=== PATIENT | male | born 1950 | race Caucasian/White ===

== ENCOUNTER 2016-12-28 04:57 | Inpatient (IN) | payer OTHER ==
--- NOTE | 2016-12-17 09:37 | HISTORY & PHYSICAL EXAMINATION ---
DATE OF ADMISSION: 12/28/2016 PROCEDURE: Left knee replacement. HISTORY OF PRESENT ILLNESS: Mr. Alaniz is a pleasant 66-year-old male who presents for preoperative evaluation prior to left knee replacement. He states he has been having pain in this knee for several years now which has gradually worsened, now gotten to the point it is affecting his daily activities including walking, standing, going up and down steps. He has tried oral anti-inflammatories including Aleve and ibuprofen without relief, he has had previous cortisone injection as well as viscosupplementation with minimal relief. He had previous knee arthroscopy in 2006. At this point in time, has failed conservative measures and would like to proceed with left knee replacement. PAST MEDICAL HISTORY: He denies a history of hypertension, high cholesterol, diabetes. He does take medications for BPH as well as levofloxacin for his thyroid. ALLERGIES: No known drug allergies. MEDICATIONS: 1. Aspirin 81 mg daily. 2. Levothyroxine 175 mcg daily. 3. Aleve. 4. Tamsulosin 0.4 mg daily. 5. Centrum. PAST SURGICAL HISTORY: Appendectomy. FAMILY HISTORY: Noncontributory. SOCIAL HISTORY: He denies a history of smoking or tobacco use. No alcohol consumption. REVIEW OF SYSTEMS: Otherwise negative. Please see HPI for pertinent positives. EXAMINATION: GENERAL: Blair 66-year-old male in no acute distress, alert and oriented x3. He is 5 feet 10, weighs 160 pounds. VITAL SIGNS: Blood pressure is 134/82, pulse 62, O2 sats 94%. HEENT: Normocephalic, atraumatic. CARDIAC: Regular rate and rhythm. No murmurs or gallops appreciated. Resting pulse 62 beats per minute. LUNGS: Clear to auscultation without rales or wheeze bilaterally. ABDOMEN: Soft, nontender. Bowel sounds present. EXTREMITIES: Left lower extremity is neurovascularly intact. Calves are soft and nontender. DP pulse +2. Demonstrates good quad tone. Straight leg raise without lag. No erythema or warmth. Has mild effusion. Positive crepitation with motion, range of motion is 0/3/120. IMAGING: Reviewed of left knee show findings consistent with degenerative joint disease including joint space narrowing, subchondral sclerosis, osteophyte formation noted. Overall has varus alignment. IMPRESSION: 1. Left knee degenerative joint disease. 2. Past medical history as outlined above. PLAN: Further care discussed with the patient. At this point in time, has failed conservative measures and would like to proceed with left knee replacement on 12/28/2016. We will plan on discharge home with outpatient physical therapy. We will place on aspirin 81 mg p.o. b.i.d. for a month postop.
[2016-12-17 09:48] VITALS: Ht 177.8 cm; Wt 72.6 kg
--- NOTE | 2016-12-17 10:18 | PAT Medication Instructions ---
Service Date December 17, 2016. Current Home Medication List Aspirin (Aspirin Ec), 81 MG PO QAM Cholecalciferol (Vitamin D3), 1 TAB PO QPM Levothyroxine Sodium (Levothyroxine Sodium), 1 TAB PO QAM Multivitamin (Multivitamin), 1 TAB PO QAM Naproxen (Aleve), 220 MG PO BID Tamsulosin HCl (Tamsulosin HCl), 0.4 MG PO HS Medication Instructions For Your Scheduled Surgery - Check with surgeon for instructions: Naproxen (Aleve), 220 MG PO BID - Hold the following medications the morning of surgery: Multivitamin (Multivitamin), 1 TAB PO QAM - Take the following medications the morning of surgery with a sip of water: Levothyroxine Sodium (Levothyroxine Sodium), 1 TAB PO QAM Aspirin (Aspirin Ec), 81 MG PO QAM - Take the following medications as scheduled the night before surgery: Tamsulosin HCl (Tamsulosin HCl), 0.4 MG PO HS Cholecalciferol (Vitamin D3), 1 TAB PO QPM If you have any questions please call us at [phone] (Brianda Oneal PA-C) or [phone] or [phone]
[2016-12-17 10:46] LABS: BASO % 0.3 %; BASO ABS # 0.02 K/uL (0-0.2); COMPLETE YES; EOS % 1.1 %; HEMATOCRIT 46.9 % (42-52); IG% 0.4 %; LYMPH % 16.2 %; LYMPH ABS # 1.16 K/uL (1.2-3.4); MEAN CELL VOLUME 91.6 fL (80-100); MEAN CORPUSCULAR HEMOGLOBIN 29.5 pg (25-34); MEAN CORPUSCULAR HGB CONC 32.2 g/dl (32-36); MEAN PLATELET VOLUME 9.5 fL (7.4-10.4); MONO % 8.2 %; NEUT % 73.8 %; PLATELET COUNT 241 K/uL (130-400); RED BLOOD COUNT 5.12 M/uL (4.7-6.1); WHITE BLOOD COUNT 7.16 K/uL (4.8-10.8)
[2016-12-17 11:11] LABS: PARTIAL THROMBOPLASTIN RATIO 1.1; PROTHROMBIN TIME (PATIENT) 10.6 SECONDS (9.0-12.0)
[2016-12-17 11:37] LABS: CALCIUM 8.7 mg/dl (8.5-10.1); CREATININE 0.9 mg/dl (0.60-1.40); POTASSIUM 4.6 mmol/L (3.5-5.1)
[~2016-12-28] VITALS: Ht 177.8 cm; Wt 72.6 kg
[2016-12-28] VITALS (8 sets, daily range): BP systolic 117–154; BP diastolic 67–95; PULSE 58–84; TEMP 36.5–37.1; O2SAT 96–100
[~2016-12-28 04:57] MED LIST: ASPI81TA28 PO; CHOL1000 PO; FLM4 PO; LEVO175T3 PO; MULT-506 PO; NAPR1TAB9 PO
[2016-12-28] MEDS ORDERED: LACTATED RINGER'S 1000ML IV SCH (06:00)
[2016-12-28] MEDS ORDERED: ACETAMINOPHEN 500 MG TAB PO SCH (06:00)
[2016-12-28] MEDS ORDERED: METOCLOPRAMIDE HCL 10 MG TAB PO SCH (06:00)
[2016-12-28] MEDS ORDERED: GABAPENTIN 300 MG CAP PO SCH (06:00)
[2016-12-28] MEDS ORDERED: LACTATED RINGER'S 1000ML 1,000 ML IV SCH (06:00)
[2016-12-28] MEDS ORDERED: CeleBREX 200 MG CAP PO SCH (06:00)
[2016-12-28] MEDS ORDERED: FAMOTIDINE 20 MG TAB PO SCH (06:00)
[2016-12-28] MEDS ORDERED: DEXAMETHASONE 4 MG TAB PO SCH (06:00)
[2016-12-28] MEDS ORDERED: CEFAZOLIN 1000MG/55 ML D5W 55 ML IV SCH (06:00)
[2016-12-28] MEDS ORDERED: LACTATED RINGER'S 1000ML 500 ML IV ONE (06:00)
[2016-12-28] MEDS ORDERED: ROPIVACAINE 5MG/ML 30 ML 150 MG, BUPIVACAINE/EPINEPHR 0.5% MPF 30 ML, KETOROLAC TROMETH... INFIL SCH ×7 (06:00)
[2016-12-28] MEDS ORDERED: ORTHO JOINT ANESTHETIC ONE (06:30)
[2016-12-28] MEDS ORDERED: BACITRACIN 50000 UNIT VIAL ONE (06:31)
[2016-12-28] MEDS ORDERED: POVIDONE-IODINE OP SOLN 30 ML BTL ONE (06:31)
[2016-12-28] MEDS ORDERED: MIDAZOLAM HCL 1 MG/ML 2ML VIAL ONE (06:40)
[2016-12-28] MEDS ORDERED: FENTANYL CITRATE INJ 50 MCG/1 ML 2 ML VIAL ONE (06:40)
[2016-12-28] MEDS ORDERED: BUPIVACAINE 0.5 % 5 MG/1 ML PF 10ML VIAL ONE (06:43)
[2016-12-28] MEDS ORDERED: BUPIVACAINE 0.25% 30 ML VIAL ONE (06:43)
[2016-12-28] MEDS ORDERED: NURSING VERBAL MED ORDER ONE (06:45)
--- NOTE | 2016-12-28 06:50 | History & Physical Bridge Note ---
H&P Re-Evaluation Bridge Note: I have examined the patient, reviewed the History & Physical and in the interval since the performance of the History & Physical I have noted the following changes of clinical significance: No changes noted
[2016-12-28] MEDS: TRANEXAMIC ACID INJ 1,000 MG in SODIUM CHLORIDE 0.9% 100ML 100 ML IV SCH ×2 (07:03→07:30)
[2016-12-28] MEDS ORDERED: PROPOFOL IV EMULSION 10 MG/ML 20 ML VIAL IV ONE ×3 (07:03→07:07)
[2016-12-28] MEDS ORDERED: LACTATED RINGER'S 1000ML 1,000 ML IV PRN (07:24)
[2016-12-28] MEDS ORDERED: ONDANSETRON INJ 2 MG/ML 2 ML VIAL IV PRN ×2 (07:30→08:15)
[2016-12-28] MEDS ORDERED: FENTANYL CITRATE INJ 50 MCG/1 ML 2 ML VIAL IV PRN (07:30)
--- NOTE | 2016-12-28 08:11 | [facility] Post Operative Brief Note ---
Immediate Operative Summary Operative Date December 28, 2016. Pre-Operative Diagnosis Left knee degenerative joint disease Post-Operative Diagnosis Left knee degenerative joint disease Procedure(s) Performed Left Total Knee Arthroplasty, Cemented Surgeon Dr. Guanako Franco Leaflet Or Newspaper Deliverer Surgeon(s) Vivek Mcwilliams PA-C Estimated Blood Loss 5ml Findings severe djd lt knee Specimens A: Left knee bone and tissue Complication(s) None Disposition Recovery Room / PACU
[2016-12-28] MEDS ORDERED: LIDOCAINE HCL 2% 2 ML VIAL (20MG/ML) ONE (08:15)
[2016-12-28] MEDS ORDERED: SOD PHOSPHATE/SOD BIPHOSPHATE ENEMA 132 ML BTL PR PRN (08:15)
[2016-12-28] MEDS ORDERED: ZOLPIDEM TARTRATE 5 MG TAB PO PRN (08:15)
[2016-12-28] MEDS ORDERED: METOCLOPRAMIDE HCL INJ 5 MG/ML 2 ML VIAL IV PRN (08:15)
[2016-12-28] MEDS ORDERED: CEFAZOLIN SOD 1 GM VIAL ONE (08:15)
[2016-12-28] MEDS ORDERED: ALUMINUM/MAGNESIUM/SIMETH (MAALOX MAX) 30 ML UDC PO PRN (08:15)
[2016-12-28] MEDS ORDERED: OXYCODONE HCL IR 5 MG TAB (IMMEDIATE RELEASE) PO PRN (08:15)
[2016-12-28] MEDS ORDERED: MAGNESIUM HYDROXIDE SUSP 30 ML UDC PO PRN (08:15)
[2016-12-28] MEDS ORDERED: DiphenhydrAMINE HCL 50 MG/ML VIAL IV PRN (08:15)
[2016-12-28] MEDS ORDERED: BISACODYL 10 MG SUPP PR PRN (08:15)
--- NOTE | 2016-12-28 08:30 | OPERATIVE REPORT ---
DATE OF OPERATION: 12/28/2016 PREOPERATIVE DIAGNOSIS: Severe end-stage degenerative joint disease, left knee. POSTOPERATIVE DIAGNOSIS: Severe end-stage degenerative joint disease, left knee. PROCEDURE: Left total knee arthroplasty utilizing Rivera \T\ Nephew Journey II nonblock total knee arthroplasty size 6 femur, 6 tibia, 10 poly, 35 oval patella. SURGEON: Dr. Franco. 911 EMERGENCY DISPATCHER: Vivek Mcwilliams, who was necessary for prepping, draping, retraction, wound closure of deep fascia, subcutaneous, skin and was necessary for the case. ESTIMATED BLOOD LOSS: 5 mL. COMPLICATIONS: None. TOURNIQUET TIME: 40 minutes. HISTORY OF PRESENT ILLNESS: The patient presents as a very pleasant 66-year-old white male with complaints of ongoing pain attributable to his left knee and presents for left total knee arthroplasty. After thorough discussion regarding complications and risks, the patient decided to undergo elective total knee arthroplasty. OPERATION AND FINDINGS: PROCEDURE: The patient was properly prepped and draped in supine position for total knee arthroplasty after identifying the appropriate surgical site. An anterior midline incision was made through the subcutaneous tissues down to the region of the extensor mechanism. A medial parapatellar incision was subsequently made. Meticulous hemostasis was obtained and performed at all times. The patella having been subluxed lateralward, medial and lateral meniscal remnants were excised. The patellar cut was then initially made and was sized to the appropriate size. After subluxing the tibia forward the appropriate meniscal fragments having been removed the distal femur was then cut first utilizing a Rivera and Nephew block. The distal femoral cuts and chamfer cuts were all made under direct visualization and the proximal tibial osteotomy cut was also made utilizing Rivera and Nephew blocks and checked with an extramedullary guide. The appropriate trial components on the femur and tibia were placed. Appropriate trial spacers were used to check flexion and extension gaps. With flexion and extension gaps being equal, the components were then subsequently after thorough irrigation and debridement lavage components were then subsequently cemented in the following order: femur, tibia and patella. Exparel was used for intraoperative anesthesia, the medial parapatellar incision was closed utilizing #1 Vicryl, subQ was closed with 2-0 Vicryl, skin was closed with skin clips. A sterile compression dressing was placed. The patient was taken to recovery room in stable condition. Due to the complex nature of the procedure, the entire surgery was performed with the operational assistance of Vivek Mcwilliams PA-C. The assistant merchandise manager, under direct supervision, was involved in the actual performance of all aspects of the surgical procedure including hemostasis, tissue retraction and incision, instrument management, patient positioning, and wound closure. I attest to the content of the Intraoperative Record and any orders documented therein. Any exceptio ns are noted below.
[2016-12-28] MEDS ORDERED: MoRPHine SULFATE 2 MG/ML CARP IV PRN (09:00)
[2016-12-28] MEDS: DOCUSATE SODIUM 100 MG CAP PO SCH ×2 (09:00→21:11)
--- NOTE | 2016-12-28 09:16 | DIAGNOSTIC IMAGING REPORT ---
LEFT KNEE 1 OR 2 VIEWS ROUTINE CLINICAL HISTORY: AP/LATERAL IN PACU LEFT KNEE joint replacement COMPARISON: None. DISCUSSION: Anatomic alignment status post total left knee replacement. Good contact between prosthetic and underlying bone. Surgical drains are in position. Expected soft tissue postoperative change IMPRESSION: No acute process status post total left knee replacement Electronically signed by: Suman Ortiz M.D. 12/28/2016 9:15 AM Dictated Date/Time: 12/28/2016 9:15 AM
--- NOTE | 2016-12-28 09:46 | Anesthesiology Progress Note ---
Anesthesia Post Op Note Date & Time December 28, 2016 at 09:46 Vital Signs Pain Intensity: 0 Vital Signs Past 12 Hours Date Time Temp Pulse Resp B/P Pulse Ox O2 Delivery O2 Flow Rate FiO2 12/28/16 09:35 60 14 113/76 99 Nasal Cannula 2 12/28/16 09:25 59 14 107/73 99 Nasal Cannula 2 12/28/16 09:15 62 14 113/73 99 Nasal Cannula 2 12/28/16 09:05 67 12 106/71 99 Nasal Cannula 2 12/28/16 08:55 68 13 104/64 100 Mask 10 12/28/16 08:45 36.2 82 12 112/62 97 Mask 10 12/28/16 05:54 36.5 58 18 127/80 100 Room Air Notes Mental Status: alert / awake / arousable, participated in evaluation Pt Amnestic to Procedure: No (recall as expected) Nausea / Vomiting: adequately controlled Pain: adequately controlled Airway Patency, RR, SpO2: stable & adequate BP & HR: stable & adequate Hydration State: stable & adequate Neuraxial Anesthesia: was administered, sensory block is resolving Anesthetic Complications: no major complications apparent Pt doing well.
[2016-12-28] MEDS ORDERED: MoRPHine SULFATE 4 MG/ML 1 ML CARP\\VIAL IV PRN (11:00)
[2016-12-28] MEDS ORDERED: MoRPHine SULFATE 10 MG/ML CARP/VIAL IV PRN (11:00)
[2016-12-28] MEDS: SODIUM CHLORIDE 0.9% 1000ML 1,000 ML IV SCH ×2 (11:31→18:21)
[2016-12-28] MEDS: FERROUS GLUCONATE 324 MG TAB PO SCH ×2 (12:09→18:21)
[2016-12-28] MEDS: MULTIVITAMIN TAB PO SCH (12:09)
[2016-12-28] MEDS: PANTOprazole SOD 40 MG TAB PO SCH (12:09)
[2016-12-28] MEDS: ACETAMINOPHEN 500 MG TAB PO SCH ×2 (13:23→22:18)
[2016-12-28] MEDS: CEFAZOLIN IV 1,000 MG in DEXTROSE 5% 50ML 50 ML IV SCH ×2 (14:28→22:18)
[2016-12-28] MEDS ORDERED: TRANEXAMIC ACID INJ 1,000 MG in SODIUM CHLORIDE 0.9% 100ML 100 ML IV SCH (14:30)
[2016-12-28] MEDS ORDERED: SENNA 8.6 MG TAB PO SCH (21:00)
[2016-12-28] MEDS ORDERED: TAMSULOSIN HCL 0.4 MG CAP PO SCH (21:00)
[2016-12-28] MEDS: ASPIRIN 325 MG ECTAB PO SCH (21:11)
[2016-12-28] MEDS: OXYCODONE HCL 10 MG TABCR (OXYCONTIN) PO SCH (21:11)
[2016-12-29 03:52] VITALS: BP 116/67; PULSE 64; TEMP 36.9; O2SAT 97
[2016-12-29] MEDS: SODIUM CHLORIDE 0.9% 1000ML 1,000 ML IV SCH (04:25)
[2016-12-29] MEDS: ACETAMINOPHEN 500 MG TAB PO SCH ×2 (05:55→13:29)
[2016-12-29] MEDS ORDERED: LEVOTHYROXINE 175 MCG TAB PO SCH (06:00)
--- NOTE | 2016-12-29 06:54 | Orthopedic Progress Note ---
Orthopedic Progress Note Date of Service December 29, 2016. Subjective Post OP Day: 1 Reports: feeling well, Denies: complaints Objective calves soft nontender, N/V intact, dressing C/D/I, A&O x3, toes mobile, hemovac drainage (90ml latest shift) Date Time Temp Pulse Resp B/P Pulse Ox O2 Delivery O2 Flow Rate FiO2 12/29/16 03:52 36.9 64 14 116/67 97 Room Air 12/28/16 23:30 Room Air 12/28/16 23:01 37.0 77 14 117/67 96 Room Air 12/28/16 20:05 37.1 80 18 122/71 96 Room Air 12/28/16 16:35 Room Air 12/28/16 15:48 36.9 84 18 130/86 96 Room Air 12/28/16 12:20 71 16 154/95 98 2.0 12/28/16 11:10 36.7 70 16 139/89 98 2.0 12/28/16 10:50 80 16 129/86 99 2.0 12/28/16 10:10 98 Nasal Cannula 2.0 12/28/16 10:10 98 Nasal Cannula 2.0 12/28/16 09:45 36.5 66 12 117/77 99 Nasal Cannula 2 12/28/16 09:35 60 14 113/76 99 Nasal Cannula 2 12/28/16 09:25 59 14 107/73 99 Nasal Cannula 2 12/28/16 09:15 62 14 113/73 99 Nasal Cannula 2 12/28/16 09:05 67 12 106/71 99 Nasal Cannula 2 12/28/16 08:55 68 13 104/64 100 Mask 10 12/28/16 08:45 36.2 82 12 112/62 97 Mask 10 Laboratory Results 24 Hours: Test 12/29/16 04:44 Assessment & Plan Assessment: POD 1 s/p Left TKA Plan: PT/OT Planning for OPPT Recheck drainage today after PT. Possible dc to home today. Inhouse Planning Pain Management: Oxycontin, Morphine, PO Tylenol, Oxy IR DVT Prophylaxis: TEDs, SCDs, ASA Discharge Planning Discharge Planning: home with oppt Pain Management: Oxycontin, Oxy IR DVT Prophylaxis: TEDs, ASA
[2016-12-29 07:22] VITALS: BP 117/72; PULSE 67; TEMP 36.4; O2SAT 95
--- NOTE | 2016-12-29 07:56 | Anesthesiology Progress Note ---
Anesthesia Post Op Note Date & Time December 29, 2016 at 07:57 Vital Signs Pain Intensity: 4.0 Vital Signs Past 12 Hours Date Time Temp Pulse Resp B/P Pulse Ox O2 Delivery O2 Flow Rate FiO2 12/29/16 07:22 36.4 67 16 117/72 95 Room Air 12/29/16 03:52 36.9 64 14 116/67 97 Room Air 12/28/16 23:30 Room Air 12/28/16 23:01 37.0 77 14 117/67 96 Room Air 12/28/16 20:05 37.1 80 18 122/71 96 Room Air Notes Mental Status: alert / awake / arousable, participated in evaluation Pt Amnestic to Procedure: Yes Nausea / Vomiting: adequately controlled Pain: adequately controlled Airway Patency, RR, SpO2: stable & adequate BP & HR: stable & adequate Hydration State: stable & adequate Neuraxial Anesthesia: was administered, sensory block resolved Anesthetic Complications: no major complications apparent
[2016-12-29 08:00] LABS: HEMATOCRIT 36.3 % (42-52); MEAN CELL VOLUME 90.3 fL (80-100); MEAN CORPUSCULAR HEMOGLOBIN 29.9 pg (25-34); MEAN CORPUSCULAR HGB CONC 33.1 g/dl (32-36); MEAN PLATELET VOLUME 9.4 fL (7.4-10.4); PLATELET COUNT 191 K/uL (130-400); RED BLOOD COUNT 4.02 M/uL (4.7-6.1); WHITE BLOOD COUNT 12.03 K/uL (4.8-10.8)
[2016-12-29] MEDS: DOCUSATE SODIUM 100 MG CAP PO SCH (08:15)
[2016-12-29] MEDS: MULTIVITAMIN TAB PO SCH (08:15)
[2016-12-29] MEDS: ASPIRIN 325 MG ECTAB PO SCH (08:15)
[2016-12-29] MEDS: FERROUS GLUCONATE 324 MG TAB PO SCH ×2 (08:15→12:42)
[2016-12-29] MEDS: PANTOprazole SOD 40 MG TAB PO SCH (08:15)
[2016-12-29] MEDS: OXYCODONE HCL 10 MG TABCR (OXYCONTIN) PO SCH (08:15)
[2016-12-29 08:31] LABS: CREATININE 0.95 mg/dl (0.60-1.40); POTASSIUM 4.3 mmol/L (3.5-5.1)
[2016-12-29 08:35] LABS: CALCIUM 8.2 mg/dl (8.5-10.1)
[2016-12-29 10:01] VITALS: BP 136/79; PULSE 81; O2SAT 97
[2016-12-29 12:47] VITALS: BP 145/91; PULSE 83; TEMP 36.8; O2SAT 97
[2016-12-29 15:28] VITALS: BP 144/85; PULSE 75; TEMP 36.7; O2SAT 98
[2016-12-29] MEDS ORDERED: SNK PO (16:11)
[2016-12-29] MEDS ORDERED: MORP15TA19 PO (16:11)
[2016-12-29] MEDS ORDERED: ASPI81TA28 PO (16:11)
[2016-12-29] MEDS ORDERED: RXC5 PO ×2 (16:11→17:11)
[2016-12-29] MEDS ORDERED: ONDA8TAB6 PO (16:12)
--- NOTE | 2016-12-29 16:15 | Discharge Instructions ---
Discharge Instructions Date of Service December 29, 2016. Admission Reason for Admission: Left Knee Osteoarthritis Discharge Discharge Diagnosis / Problem: Left Knee Djd Discharge Goals Goal(s): Decrease discomfort, Improve function Activity Recommendations Activity Limitations: per Instructions/Follow-up section Weightbearing Status: Left weightbearing (as tolerated) . Instructions / Follow-Up Instructions / Follow-Up ACTIVITY RECOMMENDATIONS: SELF CARE INSTRUCTIONS AFTER TOTAL KNEE REPLACEMENT A. You may need to continue a physical therapy program after discharge from the hospital. There are several options available to you. Your doctor will assist you in selecting the best one for you. 1. An out-patient facility 2 to 3 times a week for therapy or home therapy. 2. Continue working on all exercises taught to you in the hospital. Your goals should be to increase bending of your knee to 90 degrees and beyond and to fully straighten your knee. B. You may progress at your own pace from walking with a walker or crutches to a cane; then to no assistive devices. C. Make walking a part of your daily routine. Be up as much as comfortable with rest periods throughout the day. Rest with leg elevation is very important. Use the ice wrap frequently for the first 3-4 weeks. D. There are no restrictions on activities. You may ride in a car, shop, participate in tape edge machine operator and all social activities. E. Wear the long elastic stockings (PALMA hose) 20 hours a day for 2 weeks after surgery. They can be removed several times a day for laundering and for a bath. F. You may shower, no tub baths until cleared by your doctor. SPECIAL CARE INSTRUCTIONS: VERY IMPORTANT TO READ AND REVIEW A. There are a few signs you need to watch for after you are home. Call [facility] if you notice any of the followin. Increased severe knee pain. Some pain is expected especially when you exercise. 2. Increased swelling in your leg or knee; pain or swelling of the calf muscle in either lower leg. 3. Any fluid drainage from the incision. 4. Shortness of breath or chest pain. B. Please call [facility] at if you have any concerns or questions about your operation or recovery. The doctor or his nurse will return your call promptly. C. You must take antibiotics before dental work, bladder, bowel or other surgery. Your doctor will provide you with a permanent care to carry describing this precaution. IMPORTANT: * REMEMBER TO TAKE ASPIRIN, 81 MG, TWICE DAILY FOR 4 WEEKS UNLESS OTHERWISE DIRECTED. THIS IS YOUR BLOOD THINNER. * HIGH RISK PATIENTS MAY BE PRESCRIBED A STRONGER BLOOD THINNER. THIS WILL BE PROVIDED AT DISCHARGE. * CALL IF INCREASED PAIN, REDNESS, DRAINAGE OR FEVER GREATER THAT 101. * WEAR PALMA HOSE 20 HOURS PER DAY FOR 2 WEEKS. * Silverlon- This is a large adhesive bandage that contains silver ions. This helps your incision heal by fighting off bacteria and protecting it from the outside environment. You are permitted to shower with this dressing. This will remain on your incision for 7 days and then should be removed. Some visible blood or drainage through the dressing window is normal. If there is significant drainage or leaking noted before the 7 days notify your doctor's office immediately. Once removed, keep incision clean and dry. If there is any drainage or redness noted, please call your surgeon. . FOLLOW UP VISIT: If appointment is not already scheduled: Please call [facility] to make a follow-up appointment for 2 weeks after your surgery at . Current Hospital Diet Patient's current hospital diet: Regular Diet Discharge Diet Recommended Diet: Regular Diet Procedures Procedures Performed: Left Total Knee Arthroplasty, Cemented Pending Studies Studies pending at discharge: no Medical Emergencies . Who to Call and When: Medical Emergencies: If at any time you feel your situation is an emergency, please call 911 immediately. . Non-Emergent Contact Non-Emergency issues call your: Surgeon Call Non-Emergent contact if: temperature is above 101.5, your pain is not controlled, your pain is worsening, wound has increased drainage, wound has increased redness . "Provider Documentation" section prepared by Vivek Mcwilliams. . VTE Core Measure Inpt VTE Proph given/why not?: Other Anticoagulation, T.E.D. Stockings, SCD's [place] Drug Monitoring Program Search Results: patient reviewed within database, no issues identified
[2016-12-29 16:49] VITALS: BP 144/85; PULSE 75; TEMP 36.7; O2SAT 98
--- NOTE | 2017-01-03 22:07 | DISCHARGE SUMMARY ---
DISCHARGE DIAGNOSIS: Degenerative joint disease, left knee. CONSULTS: None. COMPLICATIONS: None. PROCEDURES: Left total knee arthroplasty performed by Dr. Franco on 12/28/2016. BRIEF HISTORY: As dictated in history and physical. HOSPITAL SUMMARY: The patient was admitted on the above date and had the above-noted surgery performed which he tolerated well. On his first postoperative day, he was feeling well and had no complaints. Calves were soft, nontender, neurovascularly intact. Dressings clean, dry and intact. Toes were mobile. Vital signs were stable. He was afebrile and he was started on physical therapy protocol and continued on DVT prophylaxis and pain management. Hemoglobin was 12.0, he was progressing with his physical therapy and remaining stable and it was felt that he could be discharged to home on 12/29/2016. For further review, please see chart. LABORATORY AND X-RAY DATA: As per chart. DISCHARGE INSTRUCTIONS: The patient was discharged to home in satisfactory condition on 12/29/2016. DIET: Regular. ACTIVITY: Weightbearing as tolerated, left lower extremity. Follow TK instruction sheets and special care instructions as noted. FOLLOWUP: Follow up with Dr. Franco in 2 weeks. The patient to call for appointment if one has not been made for you. DISCHARGE MEDICATIONS: MS Contin 15 mg p.o. q. 12 hours, Zofran 8 mg p.o. t.i.d. p.r.n., oxycodone 5-10 mg p.o. q. 4 hours p.r.n., senna 17.2 mg p.o. at bedtime. Resume vitamin D3 1000 units 1 tab p.o. q.p.m., levothyroxine 175 mcg p.o. q.a.m., multivitamin 1 tab p.o. q.p.m., tamsulosin 0.4 mg p.o. at bedtime, aspirin 81 mg p.o. Stop taking naproxen.
== END 2016-12-29 17:30 | disposition home or self-care (01) | DRG 470 ==
LOC: ENRESERVTM → ENRESERVDT → C.ACU 04:57 → C.MSN 06:45
PROVIDERS: ADMIT Orthopaedic Surgery; ATTEND Orthopaedic Surgery
PROC: 0SRD0J9 Replacement of Left Knee Joint with Synthetic Substitute, Cemented, Open Approach (ICD-10-PCS; principal; 2016-12-28 07:00)
DX: M17.12 Unilateral primary osteoarthritis, left knee (principal); N40.0 Benign prostatic hyperplasia without lower urinary tract symptoms; E03.9 Hypothyroidism, unspecified; Z79.899 Other long term (current) drug therapy; Z79.82 Long term (current) use of aspirin